=== PATIENT | female | born 2005 | race Caucasian/White ===

== ENCOUNTER → 2024-12-10 14:51 | Outpatient (CLI) | payer OTHER, SELFPAY ==
[2024-12-10 17:28] LABS: HCG Quantitative /Beta subunit 17055 mIU/mL
== END ==
PROVIDERS: Referring Provider Obstetrics & Gynecology; Visit Provider Obstetrics & Gynecology
DX: O20.9 Hemorrhage in early pregnancy, unspecified (principal)
CPT/HCPCS: 36415; 84702

== ENCOUNTER → 2024-12-12 11:32 | Outpatient (CLI) | payer OTHER, SELFPAY ==
[2024-12-12 13:30] LABS: HCG Quantitative /Beta subunit 21686 mIU/mL
== END ==
PROVIDERS: Referring Provider Obstetrics & Gynecology; Visit Provider Obstetrics & Gynecology
DX: O20.9 Hemorrhage in early pregnancy, unspecified (principal)
CPT/HCPCS: 36415; 84702

== ENCOUNTER → 2024-12-21 08:47 | Outpatient (CLI) | payer OTHER, SELFPAY ==
[2024-12-24 09:25] LABS: Urine N gonorrhoeae NOT DETECTED
[2024-12-24 09:26] LABS: Urine Chlamydia NOT DETECTED
== END ==
PROVIDERS: Visit Provider Obstetrics & Gynecology
DX: Z11.3 Encounter for screening for infections with a predominantly sexual mode of transmission (principal)
CPT/HCPCS: 87491; 87591

== ENCOUNTER 2025-01-09 18:27 | Emergency (ER) | payer OTHER, SELFPAY ==
[2025-01-09] VITALS (7 sets, daily range): BP systolic 107–124; BP diastolic 55–61; PULSE 66–84; RESP 16; TEMP 36.8; O2SAT 98–100; BMI 26.2
[2025-01-09 20:19] LABS: Add Manual Diff / Slide Review NO; Hematocrit 38.0 % (36-46); Hemoglobin 12.7 g/dL (12.0-16.0); Lymphocytes Absolute Auto 1300 /uL (1100-4500); Mean Corpuscular HGB Conc 33.5 % (30-36); Mean Corpuscular Hemoglobin 28.2 PG (26-34); Mean Corpuscular Volume 84.3 fL (80-100); Platelet Count 183 X10^3/uL (150-400)
[2025-01-09 20:31] LABS: Alanine Aminotransferase 24 IU/L (<35); Albumin 4.3 g/dL (3.5-5.0); Albumin Globulin Ratio 1.5 (1.0-2.8); Alkaline Phosphatase 51 U/L (38-126); Blood Urea Nitrogen 6 mg/dL (7-17); Calcium 9.2 mg/dL (8.4-10.2); Carbon Dioxide 21 mmol/L (22-32); Chloride 104 mmol/L (98-107); Estimated Glomerular Filt Rate > 60 mL/min (>60); Globulin 2.8 g/dL (1.7-4.1); Glucose 92 mg/dL (70-99); HEMOLYSIS < 15 (0-50); Lipase 37 U/L (23-300); Potassium 3.9 mmol/L (3.4-5.1); Sodium 135 mmol/L (137-145); Total Protein 7.1 g/dL (6.3-8.2)
--- NOTE | 2025-01-09 21:06 | ED_ITS ---
HPI - General Adult General Chief complaint: Urogenital-Female Stated complaint: lower back+abd pain 10 weeks Time Seen by Provider: 01/09/25 19:46 Source: patient Mode of arrival: Ambulatory History of Present Illness HPI narrative: 19-year-old female current about 10 weeks she believes, SAb1 obstetrical history, last menstrual period 10/30/2024, had early ultrasound confirming intrauterine , yet to have visit with provider here whose name she can not recall. Complains of left lower quadrant pain for the last 4 days. No vaginal bleeding or leaking of fluid. No painful or frequent urination. No injury trauma new activities. Denies chest pain shortness of breath. Related Data Home Medications ?Medication ?Instructions ?Recorded ?Confirmed vitamin-ferrous sulfate tab PO 12/05/2412/21 27 mg iron-folic acid 0.8 mg tablet Previous Rx's ?Medication ?Instructions ?Recorded cefdinir 300 mg capsule 300 mg PO BID 10 days #20 ca ps 01/10/25 Allergies Allergy/AdvReac Type Severity Reaction Status Date / Time No Known Drug Allergies Allergy Verified 01/09/25 18:30 Patient History Surgical History (Updated 12/05/24 @ 15:33 by Mimi Lewis RN) [place] teeth extracted Social History marital status: unmarried,living together number of children: 0 household members: significant other lives independently: Yes caregiver/support person: No housing: apartment pets and animals: No education level: high school occupational status: employed (active duty [employer]) current occupational exposures/hazards: No (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 needs: No travel history: recent ([place], [place]) seatbelt use: always water heater temp set < 120 deg: Yes working smoke detector in home: Yes fire extinguisher in home: Yes carbon monox detector in home: Yes firearms in home: No do you feel safe at home: Yes (answered w/ s/o present) Smoking Status: Never smoker second hand exposure: No alcohol intake: former (rarely when not ) substance use type: does not use during the past year weight has: remained stable well-balanced diet: about half the time daily servings fruits/ve-1 (1-2) caffeine: Yes (AM cup decaf coffee) Type(s) of exercise: walking Smoking Status: Never smoker Exam Narrative Exam Narrative: GENERAL: Well-developed patient, in mild distress. HEAD: Atraumatic. Normocephalic. EYES: Pupils equal round and reactive. Extraocular motions intact. No scleral icterus. No injection or drainage. ENT: Nose without bleeding, purulent drainage. Throat without erythema, tonsillar hypertrophy or exudate. Airway patent. NECK: Trachea midline. Non tender CARDIOVASCULAR: Regular rate and rhythm without murmurs, gallops, or rubs. RESPIRATORY: Clear to auscultation. Breath sounds equal bilaterally. No wheezes, rales, or rhonchi. GASTROINTESTINAL: Abdomen soft, non-tender, nondistended. EXTREMITIES: No edema or joint tenderness. BACK: Nontender without deformity or crepitance. No flank tenderness. NEURO: AOx3. Motor functions grossly nonfocal. SKIN: No rash or erythema of visible areas Initial Vital Signs Initial Vital Signs: Vital Signs Temperature 98.3 F 01/09/25 18:30 Pulse Rate 78 01/09/25 18:30 Respiratory Rate 16 01/09/25 18:30 Blood Pressure 111/58 L 01/09/25 18:30 Pulse Oximetry 100 01/09/25 18:30 Oxygen Delivery Method Room Air 01/09/25 18:30 Course Orders Ordered: ED Orders 01/09/25 20:10 Complete Blood Count AUTO DIFF Stat Comprehensive Metabolic Panel Stat Lipase Stat 01/09/25 20:17 Urine Microscopic Stat 01/09/25 21:34 US OB <= 14 weeks fetus Stat 01/09/25 23:51 Urine Culture Stat 01/10/25 00:09 Urinalysis and Microscopic Stat Discontinued Medications Acetaminophen (Acetaminophen 325 Mg Tablet) 650 mg PO NOW ONE Stop: 01/09/25 23:59 Last Admin: 01/10/25 01:04 Dose: 650 mg Documented By: DINORAH Cefdinir (Cefdinir 300 Mg Capsule) 300 mg PO NOW ONE Stop: 01/10/25 00:58 Last Admin: 01/10/25 01:04 Dose: 300 mg Documented By: DINORAH Morphine Sulfate (Morphine 4 Mg/Ml Inj) 4 mg IV NOW ONE Stop: 01/09/25 21:41 Last Admin: 01/09/25 21:50 Dose: 2 mg Documented By: NARENDRA Ondansetron HCl (Ondansetron 4 Mg/2 Ml Inj) 4 mg IV NOW ONE Stop: 01/09/25 21:41 Last Admin: 01/09/25 21:50 Dose: 4 mg Documented By: NARENDRA Ondansetron HCl (Ondansetron 4 Mg Odt Prepack) 1 bottle MISC DIRECTED ONE Stop: 01/10/25 01:15 Last Admin: 01/10/25 01:18 Dose: 1 bottle Documented By: DINORAH Vital Signs Vital signs: Vital Signs - 8 hr 01/09/25 21:43 01/09/25 22:00 01/09/25 22:00 Pulse Rate 78 71 Blood Pressure 124/61 Pulse Oximetry 100 100 Oxygen Delivery Method 01/09/25 22:27 01/09/25 22:27 01/09/25 22:30 Pulse Rate 68 Blood Pressure 118/61 111/56 L Pulse Oximetry 99 Oxygen Delivery Method 01/09/25 22:30 01/09/25 23:00 01/09/25 23:00 Pulse Rate 66 68 Blood Pressure 107/55 L Pulse Oximetry 98 98 Oxygen Delivery Method 01/09/25 23:30 01/09/25 23:30 01/10/25 00:00 Pulse Rate 84 63 Blood Pressure 109/55 L Pulse Oximetry 100 98 Oxygen Delivery Method Room Air 01/10/25 00:00 01/10/25 00:30 01/10/25 00:30 Pulse Rate 63 Blood Pressure 110/56 L 112/56 L Pulse Oximetry 98 Oxygen Delivery Method 01/10/25 01:00 01/10/25 01:00 01/10/25 01:02 Pulse Rate 66 Blood Pressure 88/53 L 95/51 L Pulse Oximetry 98 Oxygen Delivery Method 01/10/25 01:02 Pulse Rate 67 Blood Pressure Pulse Oximetry 99 Oxygen Delivery Method Medical Decision Making Lab Data Lab results reviewed: Yes I reviewed the patient's lab results. Lab results narrative: White blood cell count 50388, hemoglobin 12.7, platelets adequate. Glucose 92. BUN 6 with creatinine 0.52, serum CO2 21, electrolytes unremarkable. Liver functions normal. CCUA contaminated, requests repeat or cath UA. 01/09/25 20:10 01/09/25 20:10 Labs: Lab Results 01/09/25 01/09/25 01/09/25 Range/Units 20:10 20:17 23:51 WBC 11.2 H (4.5-11.0) X10^3/uL RBC 4.51 (4.0-5.2) X10^6/uL Hgb 12.7 (12.0-16.0) g/dL Hct 38.0 (36-46) % MCV 84.3 (80-100) fL MCH 28.2 (26-34) PG MCHC 33.5 (30-36) % RDW 14.0 (11.6-14.8) % Plt Count 183 (150-400) X10^3/uL Neut % (Auto) 83.9 H (50-75) % Lymph % (Auto) 11.9 L (25-40) % [place] % (Auto) 3.7 (3-14) % Eos % (Auto) 0.2 L (2-4) % Baso % (Auto) 0.3 (0-2) % Neut # (Auto) 9400 H (4899-5245) /uL Lymph # (Auto) 1300 (8531-5296) /uL [place] # (Auto) 400 (0-900) /uL Eos # (Auto) 0 (0-450) /uL Baso # (Auto) 0 (0-100) /uL Sodium 135 L (137-145) mmol/L Potassium 3.9 (3.4-5.1) mmol/L Chloride 104 (98-107) mmol/L Carbon Dioxide 21 L (22-32) mmol/L BUN 6 L (7-17) mg/dL Creatinine 0.52 (0.52-1.04) mg/dL Estimated GFR > 60 (>60) mL/min BUN/Creatinine Ratio 11.5 (6-22) Glucose 92 (70-99) mg/dL Calcium 9.2 (8.4-10.2) mg/dL Total Bilirubin 0.6 (0.2-1.3) mg/dL AST 26 (14-36) IU/L ALT 24 (<35) IU/L Alkaline Phosphatase 51 (38-126) U/L Total Protein 7.1 (6.3-8.2) g/dL Albumin 4.3 (3.5-5.0) g/dL Globulin 2.8 (1.7-4.1) g/dL Albumin/Globulin Ratio 1.5 (1.0-2.8) Lipase 37 (23-300) U/L Urine Color Yellow Urine Appearance Clear Urine pH 6.5 (4.5-8.0) Ur Specific [place] 1.015 (1.000-1.035) Urine Protein Negative (Negative) Urine Glucose (UA) Negative (Negative) g/dL Urine Ketones 1+ H (NEGATIVE) Urine Occult Blood Negative (Negative) Urine Nitrate Positive H (Negative) Urine Bilirubin Negative (NEGATIVE) Urine Urobilinogen 0.2 (0.2) E.U./dL Ur Leukocyte Esterase Negative (NEGATIVE) Urine RBC None seen None seen (0-5/HPF) Urine WBC 0-1/hpf None seen (0-5/HPF) Ur Squamous Epith Cells 10-30 /hpf H 5-10 /hpf H (0-5/HPF) Urine Bacteria Moderate (10-30) H Moderate (10-30) H (None) Urine Mucus 1+ H 2+ H (Negative) Ur Culture Indicated? Cult not indicated Specimen cultured Vol Urine Centrifuged 10ml (spun) 10ml (spun) Point of Care Testing Test Results Positive Urine Dip Bedside Urine Glucose Negative Bedside Urine Bilirubin - Negative Bedside Urine Ketone ++ 40 Urine Specific [place] 1.015 Bedside Urine Occult Blood - Negative Bedside Urine pH 6.0 Bedside Urine Protein - Negative Bedside Urine Urobilinogen - Negative Bedside Urine Nitrite - Negative Bedside Urine Leukocytes - Negative Esterase Point of care testing: Point of Care Testing Test Results Positive Urine Dip Bedside Urine Glucose Negative Bedside Urine Bilirubin - Negative Bedside Urine Ketone ++ 40 Urine Specific [place] 1.015 Bedside Urine Occult Blood - Negative Bedside Urine pH 6.0 Bedside Urine Protein - Negative Bedside Urine Urobilinogen - Negative Bedside Urine Nitrite - Negative Bedside Urine Leukocytes - Negative Esterase Imaging Data Ultrasound pelvis with limited left kidney: Radiologist's Impression: [address] [address] Ultrasound Report Signed Patient: Damon Valencia MR#: [id number] : 2005 Acct:[id number] Age/Sex: 19 / F Date of Service: 01/09/25 Loc: ED Accession Number: [id number] Procedure: US OB <= 14 weeks fetus Ordering Provider: Kristopher Peterson MD PROCEDURE: US OB <= 14 WEEKS FETUS INDICATIONS: 10 wks gest, LLQ abd pain, L flank pain OUTSIDE/PRIOR DATING DATA: Last menstrual period (LMP): 10/30/2024. LMP-based estimated date of delivery (KAMI): 08/06/2025. First dating scan (date and location): 01/09/2025. Estimated date of delivery (KAMI) from first dating scan: 08/04/2025. TECHNIQUE: Real-time scanning was performed of the fetus and maternal pelvic organs, with image documentation. Endovaginal scanning was also performed to better visualize the fetus and maternal ovaries. COMPARISON: None. FINDINGS: Embryo: pole with crown-rump length measuring 3.5 cm consistent with 10 weeks and 3 days. Heart rate: 168 Maternal organs: Ovaries are within normal limits. Limited views of the left kidney appear within normal limits. IMPRESSION: 1. Single live intrauterine consistent with 10 weeks and 3 days. 2. Bilateral ovaries and limited views of the left kidney appear normal. We strive to produce accurate, complete, and clear reports of imaging services. To assist us in improving patient care, this report was composed using standard report templates and voice recognition software. Therefore, it may contain abnormal punctuation, insertions and/or omissions. Occasional wrong-word or sound-alike substitutions may occur. Though we review the report and make efforts to correct it, we do recommend that the report be read carefully in proper context to recognize any text inaccuracies. Dictated by: Maycol Lopes M.D. on 01/09/2025 at 22:37 Approved by: Maycol Lopes M.D. on 01/09/2025 at 22:39 MDM Narrative Medical decision making narrative: 19-year-old female current SAB 1, 10 week gestation, with left flank and left lower quadrant discomfort, no vaginal bleeding, no leaking of fluid. No painful urination, afebrile, sirs screen negative. No tenderness on examination. Labs and urinalysis pending. Ultrasound with left flank/kidney ordered. We would like something for pain control, IV morphine for pain. Lab data: White blood cell count 22855, hemoglobin 12.7, platelets adequate. Glucose 92. BUN 6 with creatinine 0.52, serum CO2 21, electrolytes unremarkable. Liver functions normal. CCUA contaminated, requests repeat or cath UA. 2030, Ultrasound pelvis shows IUP, no acute changes, additional visualization left kidney area, no hydronephrosis or renal lesions. Sono tech report. Await Radiology report. Ultrasound with pelvis, limited left kidney visualization as well. Single live intrauterine consistent with 10 weeks and 3 days. Bilateral ovaries and limited views of the left kidney appeared normal. See radiology report. CCUA contaminated, refused catheterization, repeat CCUA pending. Patient feels a little better with morphine, does not want any further morphine, we will take Tylenol. Oral Tylenol ordered. Repeat CC UA not contaminated appearing, with positive nitrite and bacteriuria, urine culture triggered by protocol. Possible UTI, possible left pyelonephritis, hemodynamically stable, 1st trimester , no nausea or vomiting. Trial of outpatient therapy. Oral cefdinir antibiotic given in the emergency department, prescription for further antibiotic on discharge. Encouraged to recheck with her weblogic administrator on Tuesday, drink plenty of fluids, return precautions discussed. Discharged home with family. On discharge also given contact information for weblogic administrator on-call Dr. Jimenez, if she has difficulty contacting her own weblogic administrator in being seen in close follow up on Tuesday. Discharge Plan Departure Patient Disposition: Home Clinical Impression: Urinary tract infection, Instructions: DI for Urinary Tract Infection (UTI) Activity Restrictions/Additional Instructions: Early at about 10 weeks gestation at this time, with left sided nontraumatic pain to the abdomen and flank area. Initial urinalysis was not convincing for infection. Ultrasound of the pelvis showed no acute findings, 10 week size live single intrauterine noted, no problems with either ovary seemed to be identified, limited view of left kidney but without obvious problems per Radiology report. Eventually a repeat non contaminated urinalysis was obtained, which was suspicious for infection by chemical markers and presence of bacteria, urine culture was triggered by protocol. Oral antibiotic cefdinir given, further antibiotics prescription sent to your pharmacy. Take oral antibiotics as directed. Follow up with your regular doctor on Tuesday. Follow up with your weblogic administrator early this next week. Recheck earlier if any change worsening symptoms or any concerns prior. You could not remember the name of your weblogic administrator, contact information provided for Dr. Jimenez who was on-call here today, if you need to make close follow up arrangements early next week with Dr. Jimenez, if you can not make appointment with your regular weblogic administrator that soon. Prescriptions: New cefdinir 300 mg capsule 300 mg PO BID 10 Days Qty: 20 0RF No Action vit-ferrous sulfat-FA 27 mg iron- 0.8 mg tablet PO Referrals: Miscellaneous,Doctor, MD [Primary Care Provider, Medical] Tiffanie Jimenez DO [Physician, RADIOLOGIC ELECTRONIC SPECIALIST] Stand Alone Forms: Patient Portal/API
--- NOTE | 2025-01-09 21:34 | DI.US.S_ITS ---
PROCEDURE: US OB <= 14 WEEKS FETUS INDICATIONS: 10 wks gest, LLQ abd pain, L flank pain OUTSIDE/PRIOR DATING DATA: Last menstrual period (LMP): 10/30/2024. LMP-based estimated date of delivery (KAMI): 08/06/2025. First dating scan (date and location): 01/09/2025. Estimated date of delivery (KAMI) from first dating scan: 08/04/2025. TECHNIQUE: Real-time scanning was performed of the fetus and maternal pelvic organs, with image documentation. Endovaginal scanning was also performed to better visualize the fetus and maternal ovaries. COMPARISON: None. FINDINGS: Embryo: pole with crown-rump length measuring 3.5 cm consistent with 10 weeks and 3 days. Heart rate: 168 Maternal organs: Ovaries are within normal limits. Limited views of the left kidney appear within normal limits. IMPRESSION: 1. Single live intrauterine consistent with 10 weeks and 3 days. 2. Bilateral ovaries and limited views of the left kidney appear normal. We strive to produce accurate, complete, and clear reports of imaging services. To assist us in improving patient care, this report was composed using standard report templates and voice recognition software. Therefore, it may contain abnormal punctuation, insertions and/or omissions. Occasional wrong-word or sound-alike substitutions may occur. Though we review the report and make efforts to correct it, we do recommend that the report be read carefully in proper context to recognize any text inaccuracies. Dictated by: Maycol Lopes M.D. on 01/09/2025 at 22:37 Approved by: Maycol Lopes M.D. on 01/09/2025 at 22:39
[2025-01-09] MEDS: ONDANSETRON 4 MG/2 ML INJ IV (21:50)
[2025-01-09] MEDS: MORPHINE 4 MG/ML INJ IV (21:50)
[2025-01-09 21:55] LABS: Culture Indicated Urine Cult Not Indicated
[2025-01-10] VITALS: BP 110/56; PULSE 63; O2SAT 98
[2025-01-10 00:30] VITALS: BP 112/56; PULSE 63; O2SAT 98
[2025-01-10 00:36] LABS: Appearance Urine UA CLEAR; Bilirubin Urine UA NEGATIVE (NEGATIVE); Color Urine UA YELLOW; Glucose Urine UA NEGATIVE (Negative); Ketones Urine UA 1+ (NEGATIVE); Leukocyte Esterase Urine UA NEGATIVE (NEGATIVE); Nitrite Urine UA POSITIVE (Negative); Occult Blood Urine UA NEGATIVE (Negative); Protein Urine UA NEGATIVE (Negative); Specific Gravity Urine UA 1.015 (1.000-1.035); Urobilinogen Urine UA 0.2 E.U./dL (0.2)
[2025-01-10 00:40] LABS: pH Urine UA 6.5 (4.5-8.0)
[2025-01-10 00:44] LABS: Culture Indicated Urine Specimen Cultured
[2025-01-10 01:00] VITALS: BP 88/53; PULSE 66; O2SAT 98
[2025-01-10 01:02] VITALS: BP 95/51; PULSE 67; O2SAT 99
[2025-01-10] MEDS: CEFDINIR 300 MG CAPSULE PO (01:04)
[2025-01-10] MEDS: ACETAMINOPHEN 325 MG TABLET 650 MG PO (01:04)
[2025-01-10] MEDS: ONDANSETRON 4 MG ODT PREPACK 1 BOTTLE MISC (01:18)
== END 2025-01-10 01:19 | disposition home or self-care (01) ==
PROVIDERS: Emergency Provider Emergency Medicine
DX: O23.41 Unspecified infection of urinary tract in pregnancy, first trimester (principal); N39.0 Urinary tract infection, site not specified; Z3A.10 10 weeks gestation of pregnancy
CPT/HCPCS: 36415; 76801; 80053; 81001; 81003; 81015; 81025; 83690; 85025; 87086; 93976; 96374; 96375; 99284; J2270; J2405

== ENCOUNTER 2025-01-14 14:42 | Emergency (ER) | payer OTHER, SELFPAY ==
[2025-01-14] VITALS (7 sets, daily range): BP systolic 116–128; BP diastolic 57–75; PULSE 76–84; RESP 15–20; TEMP 37; O2SAT 99–100; BMI 26.2
--- NOTE | 2025-01-14 14:56 | DI.US.S_ITS ---
PROCEDURE: US OB <= 14 WEEKS FETUS INDICATIONS: abd pain OUTSIDE/PRIOR DATING DATA: Last menstrual period (LMP): 10/30/2024 LMP-based estimated date of delivery (KAMI): 08/06/2025 First dating scan (date and location): 01/09/2025 Estimated date of delivery (KAMI) from first dating scan: 08/04/2025 TECHNIQUE: Real-time scanning was performed of the fetus and maternal pelvic organs, with image documentation. COMPARISON: [facility], OB <= 14 WEEKS FETUS, 01/09/2025, 22:02. FINDINGS: Embryo: Single live intrauterine gestational sac is seen with fetus noted. Estimated gestational age based on previous study is 10 weeks, 6 days. Heart rate: 165 beats per minute. Maternal organs: Ovaries are within normal limits. IMPRESSION: Single live intrauterine gestation with fetus seen. heart rate is 165 beats per minute. Normal appearing bilateral ovaries. We strive to produce accurate, complete, and clear reports of imaging services. To assist us in improving patient care, this report was composed using standard report templates and voice recognition software. Therefore, it may contain abnormal punctuation, insertions and/or omissions. Occasional wrong-word or sound-alike substitutions may occur. Though we review the report and make efforts to correct it, we do recommend that the report be read carefully in proper context to recognize any text inaccuracies. Dictated by: Brandon Smith M.D. on 01/14/2025 at 15:50 Approved by: Brandon Smith M.D. on 01/14/2025 at 15:52
--- NOTE | 2025-01-14 15:04 | ED_ITS ---
HPI - Nausea/Vomiting/Diarrhea General Chief complaint: Nausea/Vomiting/Diarrhea Stated complaint: cant eat, head ache Time Seen by Provider: 01/14/25 14:54 Source: patient Mode of arrival: Ambulatory History of Present Illness HPI Narrative: 19y female 11wks with KAMI 08/13/25 currently being treated for kidney infection seen at to ERs recently most recently at another ER given IM antibiotics presents with nonbilious nausea decreased appetite feeling weak and dehydrated. Patient was recently in [facility] for 2 days but did have appropriate p.o. intake. Other than what is stated 14 point review of systems negative. Related Data Home Medications ?Medication ?Instructions ?Recorded ?Confirmed vitamin-ferrous sulfate tab PO 12/05/2412/21 27 mg iron-folic acid 0.8 mg tablet Previous Rx's ?Medication ?Instructions ?Recorded cefdinir 300 mg capsule 300 mg PO BID 10 days #20 ca ps 01/10/25 ondansetron HCl 4 mg tablet 4 mg PO Q8H PRN nausea and 01/14/25 vomiting #30 tabs Allergies Allergy/AdvReac Type Severity Reaction Status Date / Time No Known Drug Allergies Allergy Verified 01/14/25 14:45 Review of Systems Review of Systems ROS Unobtainable: All systems reviewed & are unremarkable except as noted in HPI and below Patient History Surgical History (Updated 12/05/24 @ 15:33 by Mimi Lewis RN) [place] teeth extracted Social History marital status: unmarried,living together number of children: 0 household members: significant other lives independently: Yes caregiver/support person: No housing: apartment pets and animals: No education level: high school occupational status: employed (active duty [employer] current occupational exposures/hazards: No (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 needs: No travel history: recent ([place], [place]) seatbelt use: always water heater temp set < 120 deg: Yes working smoke detector in home: Yes fire extinguisher in home: Yes carbon monox detector in home: Yes firearms in home: No do you feel safe at home: Yes (answered w/ s/o present) Smoking Status: Never smoker second hand exposure: No alcohol intake: former (rarely when not ) substance use type: does not use during the past year weight has: remained stable well-balanced diet: about half the time daily servings fruits/ve-1 (1-2) caffeine: Yes (AM cup decaf coffee) Type(s) of exercise: walking Smoking Status: Never smoker Exam Narrative Exam Narrative: GENERAL: [19] year old patient appears stated age. Well-developed patient, in mild distress. HEAD: Atraumatic. Normocephalic. EYES: Pupils equal round and reactive. Extraocular motions intact. No scleral icterus. No injection or drainage. ENT: Nose without bleeding, purulent drainage. Throat without erythema, tonsillar hypertrophy or exudate. Airway patent. NECK: Trachea midline. Non tender CARDIOVASCULAR: Regular rate and rhythm without murmurs, gallops, or rubs. RESPIRATORY: Clear to auscultation. Breath sounds equal bilaterally. No wheezes, rales, or rhonchi. GASTROINTESTINAL: Abdomen soft, non-tender, nondistended. EXTREMITIES: No edema or joint tenderness. BACK: Nontender without deformity or crepitance. No flank tenderness. NEURO: AOx3. SKIN: No rash or erythema of visible areas Initial Vital Signs Initial Vital Signs: Vital Signs Temperature 98.6 F 01/14/25 14:45 Pulse Rate 84 01/14/25 14:45 Respiratory Rate 20 01/14/25 14:45 Blood Pressure 117/64 01/14/25 14:45 Pulse Oximetry 100 01/14/25 14:45 Oxygen Delivery Method Room Air 01/14/25 14:45 Course Orders Ordered: ED Orders 01/14/25 14:56 US OB <= 14 weeks fetus Stat 01/14/25 15:22 Complete Blood Count AUTO DIFF Stat Comprehensive Metabolic Panel Stat HCG Quantitative /Beta subunit Stat Sodium Chloride (Normal Saline 0.9%) 1,000 mls @ 1,000 mls/hr IV BOLUS ONE Stop: 01/14/25 16:07 Last Admin: 01/14/25 15:36 Dose: 1,000 mls/hr Documented By: SB Vital Signs Vital signs: Vital Signs - 8 hr 01/14/25 14:45 Temperature 98.6 F Pulse Rate 84 Respiratory Rate 20 Blood Pressure 117/64 Pulse Oximetry 100 Oxygen Delivery Method Room Air MDM - Nausea/Vomiting/Diarrhea Lab Data 01/14/25 15:22 01/14/25 15:22 Labs: Lab Results 01/14/25 Range/Units 15:22 WBC 8.7 (4.5-11.0) X10^3/uL RBC 4.61 (4.0-5.2) X10^6/uL Hgb 13.1 (12.0-16.0) g/dL Hct 38.7 (36-46) % MCV 84.1 (80-100) fL MCH 28.4 (26-34) PG MCHC 33.8 (30-36) % RDW 13.6 (11.6-14.8) % Plt Count 202 (150-400) X10^3/uL Neut % (Auto) 79.4 H (50-75) % Lymph % (Auto) 14.5 L (25-40) % [place] % (Auto) 5.3 (3-14) % Eos % (Auto) 0.3 L (2-4) % Baso % (Auto) 0.5 (0-2) % Neut # (Auto) 6900 (4520-7971) /uL Lymph # (Auto) 1300 (4420-9186) /uL [place] # (Auto) 500 (0-900) /uL Eos # (Auto) 0 (0-450) /uL Baso # (Auto) 0 (0-100) /uL Sodium 133 L (137-145) mmol/L Potassium 3.7 (3.4-5.1) mmol/L Chloride 101 (98-107) mmol/L Carbon Dioxide 22 (22-32) mmol/L BUN 8 (7-17) mg/dL Creatinine 0.58 (0.52-1.04) mg/dL Estimated GFR > 60 (>60) mL/min BUN/Creatinine Ratio 13.8 (6-22) Glucose 87 (70-99) mg/dL Calcium 9.3 (8.4-10.2) mg/dL Total Bilirubin 0.8 (0.2-1.3) mg/dL AST 35 (14-36) IU/L ALT 33 (<35) IU/L Alkaline Phosphatase 53 (38-126) U/L Total Protein 7.2 (6.3-8.2) g/dL Albumin 4.5 (3.5-5.0) g/dL Globulin 2.7 (1.7-4.1) g/dL Albumin/Globulin Ratio 1.7 (1.0-2.8) Urine Dip Bedside Urine Glucose Negative Bedside Urine Bilirubin - Negative Bedside Urine Ketone +/- 5 Urine Specific [place] 1.005 Bedside Urine Occult Blood - Negative Bedside Urine pH 6.0 Bedside Urine Protein - Negative Bedside Urine Urobilinogen - Negative Bedside Urine Nitrite - Negative Bedside Urine Leukocytes - Negative Esterase Imaging Data US - OB: Radiologist's Impression: [address] [address] [address] Scan Report Signed Patient: Gopal Vera MR#: [id number] : 03/04/1941 Acct:[id number] Age/Sex: 83 / M Date of Service: 01/14/25 Loc: ED Accession Number: [id number] Procedure: CT angio head and neck Ordering Provider: Viet Garcia D.O. PROCEDURE: CT ANGIO HEAD AND NECK INDICATIONS: neuro def/left arm TECHNIQUE: After the administration of intravenous contrast, 1 mm thick sections acquired from the aortic arch through the [place] of [place]. 3-dimensional qfbwnco-iuhhavzlz-ypcanhiwep (MIP) and/or volume rendering reformats were acquired of the central intracranial vasculature and neck separately. For radiation dose reduction, the following was used: automated exposure control, adjustment of mA and/or kV according to patient size. COMPARISON: [facility], CT, CT ANGIO HEAD AND NECK, 07/17/2021, 11:46. FINDINGS: Image quality: Diagnostic. Cerebral CT Angiogram: Internal carotid arteries: No acute findings. Intracranial ICA are patent with no significant stenosis. No occlusion. No aneurysm. Anterior cerebral arteries: Unremarkable. No significant stenosis. No occlusion. No aneurysm. Middle cerebral arteries: Unremarkable. No significant stenosis. No occlusion. No aneurysm. Posterior cerebral arteries: Unremarkable. No significant stenosis. No occlusion. No aneurysm. Basilar artery: Unremarkable. No significant stenosis. No occlusion. No aneurysm. Vertebral arteries: Occlusion involving V3 and V4 segment of right vertebral artery unchanged from prior study. Dural venous sinuses: Unremarkable given phase of enhancement. Other: Arterial phase appearance of the brain parenchyma is unremarkable. Neck CT Angiogram: Internal carotid arteries: Patient is status post interval right proximal internal carotid artery endarterectomy with postsurgical changes and vascular stent in place. Normal contrast opacification of right internal carotid artery is seen. Less than 50% stenosis involving proximal left internal carotid artery is again seen and unchanged. No significant stenosis. No dissection or occlusion. Common carotid arteries: Unremarkable. No significant stenosis. No dissection or occlusion. External carotid arteries: Unremarkable. No occlusion. Vertebral arteries: High-grade stenosis involving origin of right vertebral artery is again seen and unchanged. Less than 50% stenosis involving origin of left vertebral artery. No significant stenosis. No dissection or occlusion. Aortic Arch and Mediastinum: Partially visualized aortic arch unremarkable without evidence of aneurysm. Origins of the great vessels unremarkable. Other: Arterial phase soft tissues of the neck and chest are unremarkable. IMPRESSION: 1. 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 2. Interval right internal carotid artery surgery with vascular stent in place. No hemodynamically significant stenosis is seen in right internal carotid artery on the current study. Less than 50% stenosis again noted involving origin of left internal carotid artery. 3. High-grade stenosis again seen involving origin of right vertebral artery unchanged from prior study. Less than 50% stenosis again seen involving origin of left vertebral artery. 4. No other hemodynamically significant stenosis or aneurysm is seen in head and neck arteries. ECG Data Interpretation: Sinus [place] HR 49 ND 142 QRS [address]-t wave change No previous ekg to compare MDM Narrative Medical decision making narrative: All lab work, vital signs, nurse triage note, medication list, previous ER visits, and all imaging studies reviewed. Patient given fluid, Rocephin. Ultrasound shows single live intrauterine gestation with fetus seen heart rate is 165 beats per minute. Normal-appearing bilateral ovaries. Differential diagnosis hyperemesis gravidarum, dehydration, electrolyte derangement, UTI, kidney infection. Patient has upcoming appoint with OBGYN this Tuesday. Discharge Plan Departure Patient Disposition: Home Clinical Impression: Infection of kidney, Hyperemesis gravidarum before end of 22 week gestation with dehydration Instructions: DI for Hyperemesis Gravidarum Activity Restrictions/Additional Instructions: Return with new or worsening symptoms. Take your medicines as directed. Keep hydrated. Follow up with OBGYN appointment. Prescriptions: New ondansetron HCl 4 mg tablet 4 mg PO Q8H PRN (Reason: nausea and vomiting) Qty: 30 0RF No Action vit-ferrous sulfat-FA 27 mg iron- 0.8 mg tablet PO cefdinir 300 mg capsule 300 mg PO BID 10 Days Qty: 20 0RF Referrals: Miscellaneous,Doctor, MD [Primary Care Provider, Medical] Stand Alone Forms: Patient Portal/API
[2025-01-14 15:36] LABS: Add Manual Diff / Slide Review NO; Hematocrit 38.7 % (36-46); Hemoglobin 13.1 g/dL (12.0-16.0); Lymphocytes Absolute Auto 1300 /uL (1100-4500); Mean Corpuscular HGB Conc 33.8 % (30-36); Mean Corpuscular Hemoglobin 28.4 PG (26-34); Mean Corpuscular Volume 84.1 fL (80-100); Platelet Count 202 X10^3/uL (150-400)
[2025-01-14] MEDS: SODIUM CHLORIDE 0.9% 1,000 ML 1000 ML IV (15:36)
[2025-01-14 15:54] LABS: Alanine Aminotransferase 33 IU/L (<35); Albumin 4.5 g/dL (3.5-5.0); Albumin Globulin Ratio 1.7 (1.0-2.8); Alkaline Phosphatase 53 U/L (38-126); Blood Urea Nitrogen 8 mg/dL (7-17); Calcium 9.3 mg/dL (8.4-10.2); Carbon Dioxide 22 mmol/L (22-32); Chloride 101 mmol/L (98-107); Estimated Glomerular Filt Rate > 60 mL/min (>60); Globulin 2.7 g/dL (1.7-4.1); Glucose 87 mg/dL (70-99); HEMOLYSIS < 15 (0-50); Potassium 3.7 mmol/L (3.4-5.1); Sodium 133 mmol/L (137-145); Total Protein 7.2 g/dL (6.3-8.2)
[2025-01-14 16:36] LABS: HCG Quantitative /Beta subunit 86837 mIU/mL
== END 2025-01-14 17:55 | disposition home or self-care (01) ==
PROVIDERS: Emergency Provider Family Medicine
DX: O21.1 Hyperemesis gravidarum with metabolic disturbance (principal); N15.9 Renal tubulo-interstitial disease, unspecified; Z3A.11 11 weeks gestation of pregnancy
CPT/HCPCS: 36415; 76801; 80053; 81003; 84702; 85025; 96360; 99284; J0696

== ENCOUNTER → 2025-02-15 10:12 | Outpatient (CLI) | payer OTHER, SELFPAY ==
[2025-02-18 13:40] LABS: Gest Age on Col Date 15.4 weeks (.); OSBR Risk 1IN 10000 (.)
== END ==
PROVIDERS: Referring Provider Obstetrics & Gynecology; Visit Provider Obstetrics & Gynecology
DX: Z34.02 Encounter for supervision of normal first pregnancy, second trimester (principal)
CPT/HCPCS: 36415; 82105

== ENCOUNTER → 2025-03-05 10:37 | Outpatient (CLI) | payer OTHER, SELFPAY ==
--- NOTE | 2025-03-05 10:38 | DI.MRI.S_ITS ---
PROCEDURE: MR LUMBAR SPINE WO CON INDICATIONS: LOW BACK PAIN TECHNIQUE: Noncontrast sagittal T1 spin echo and T2 fast echo, sagittal STIR, and T2 fast spin echo through the lumbar spine. In cases with scoliosis, additional coronal T2 fast spin echo may be performed. COMPARISON: [facility], , PELVIC COMPLETE, 01/21/2025, 18:15. FINDINGS: Image quality: Excellent. Alignment and Curvature: No plain films are available for comparison, for numbering purposes. Thus, for the purposes of this examination, 5 lumbar type vertebral bodies will be presumed, as denoted on the montage panel. This should be confirmed and correlated with plain films, prior to any lumbar spinal intervention. Loss of normal lumbar lordosis. Bone Marrow: Marrow is of normal overall signal. No acute vertebral body compression fractures. Spinal Cord: Conus medullaris terminates at the L1-L2 disc space level. Visualized cord demonstrates normal signal and size. Paraspinous Soft Tissues: No paravertebral masses. Incompletely visualized gravid uterus is present. T12-L1: Normal appearance. L1-L2: Normal appearance. L2-L3: Normal appearance. L3-L4: Normal appearance. L4-L5: Normal appearance. L5-S1: Normal appearance. IMPRESSION: 1. Loss of normal lumbar lordosis, suggestive of muscle spasm. 2. No significant canal nor foraminal stenosis. No neural impingement. 3. Incompletely visualized gravid uterus. Dictated by: Arturo Roche M.D. on 03/05/2025 at 11:40 Approved by: Arturo Roche M.D. on 03/05/2025 at 11:43
== END ==
LOC: MRI 10:38
PROVIDERS: Referring Provider Preventive Medicine Aerospace Medicine; Visit Provider Preventive Medicine Aerospace Medicine
DX: M54.50 Low back pain, unspecified (principal)
CPT/HCPCS: 72148

== ENCOUNTER → 2025-03-18 11:02 | Outpatient (CLI) | payer OTHER, SELFPAY ==
--- NOTE | 2025-03-18 11:03 | DI.US.S_ITS ---
PROCEDURE: US OB >= 14 WEEKS FETUS INDICATIONS: anatomy scan OUTSIDE/PRIOR DATING DATA: Last menstrual period (LMP): 10/30/2024. LMP-based estimated date of delivery (KAMI): 08/06/2025. First dating scan (date and location): 01/09/2025. Estimated date of delivery (KAMI) from first dating scan: 08/04/2025. TECHNIQUE: Real-time scanning was performed of the fetus, with image documentation and biometric measurements. Endovaginal scanning: Not obtained COMPARISON: None. FINDINGS: General: A single living intrauterine gestation is present. Presentation: Vertex. Placenta: Placental position is anterior , without previa. Amniotic fluid index: 17.4 cm, normal range is 5-24 cm. Single deepest vertical pocket is 5.7 cm. heart rate: 141 beats per minute. Maternal cervical canal: 3.0 cm long. Normal lower limit is 2.5 cm. biometrics: Biparietal diameter: 4.9 cm 20 weeks 6 days Head circumference: 17.4 cm 20 weeks 0 days Abdominal circumference: 14.7 cm 20 weeks 0 days Femur length: 3.2 cm 19 weeks 6 days Clinically estimated gestational age: 19 weeks 6 days Composite gestational age from present scan: 20 weeks 1 day Estimated weight and percentile: 321 g 49th percentile Anatomic survey: Neuro: Ventricles are non-dilated at less than 10 mm. Cisterna magna is normal at 3-11 mm. Cerebellum is normal in size and morphology. Nuchal skin fold: Normal at less than 6 mm between 14-21 weeks gestational age. Face: Nose and lips, facial profile are normal. Spine: No evidence for spina bifida. Heart: 4-chambered heart is present, with normal ventricular outflow tracts. Diaphragm: Diaphragm is intact. Stomach: Left-sided stomach is present. Kidneys: No hydronephrosis. Normal is less than 5 mm in 2nd trimester, less than 7 mm in 3rd trimester. Cord: 3-vessel cord has orthotopic insertion. Bladder: Normal in size. Extremities: All 4 extremities identified. IMPRESSION: Single live intrauterine with gestational age today of 20 weeks 1 day. Anatomy is within normal limits. We strive to produce accurate, complete, and clear reports of imaging services. To assist us in improving patient care, this report was composed using standard report templates and voice recognition software. Therefore, it may contain abnormal punctuation, insertions and/or omissions. Occasional wrong-word or sound-alike substitutions may occur. Though we review the report and make efforts to correct it, we do recommend that the report be read carefully in proper context to recognize any text inaccuracies. Dictated by: Adela Ortega M.D. on 03/18/2025 at 16:26 Approved by: Adela Ortega M.D. on 03/18/2025 at 16:27
== END ==
LOC: US 11:02
PROVIDERS: Referring Provider Obstetrics & Gynecology; Visit Provider Obstetrics & Gynecology
DX: Z34.02 Encounter for supervision of normal first pregnancy, second trimester (principal); Z3A.19 19 weeks gestation of pregnancy
CPT/HCPCS: 76811

== ENCOUNTER 2025-03-27 12:39 | Emergency (ER) | payer OTHER, SELFPAY ==
[2025-03-27 12:58] VITALS: BP 118/66; PULSE 82; RESP 20; TEMP 36.8; O2SAT 100; BMI 29.2
--- NOTE | 2025-03-27 13:05 | ED.URI ---
HPI - URI/Sore Throat <Alexandria Moore PA-C - Last Filed: 03/27/25 14:57> General Chief Complaint: Shortness of Breath/Dyspnea Stated Complaint: SOB, cough w/pn, MCGINNIS , sore throat since yesterday Time Seen by Provider: 03/27/25 12:43 History of Present Illness HPI Narrative: Ms. Valencia is a very pleasant 19-year-old female with a past medical history of possible asthma, currently 21 weeks, who follows with Dr. Myers/zEequiel/Mane who presents to the emergency department for cough, shortness of breath, headache, sore throat, sinus congestion since yesterday. Patient denies any known sick contact, states that 1 of her coworkers was sick however. States that yesterday she developed her symptoms, this morning she went to physical therapy for low back pain but was sent away due to being sick. She went to her OBGYN office, had vital signs checked which were normal, but they can not get her in for an appointment today. States that she started to feel worked up and felt more short of breath so she called her OBGYN who advised she come to the ER to be checked out. Patient states that she does occasionally use an inhaler for shortness of breath, she has not use this, she did have it refilled today. Patient describes sensation of dry cough that causes chest tightness, nausea with no vomiting, headache, sore throat, left-sided facial congestion. Reports that last night she had some mild left-sided pelvic twinges that have resolved. She is feeling normal movements today. Denies diarrhea, constipation, dysuria, fevers, chills, vomiting. She has not taken any medications prior to arrival. Related Data Home Medications ?Medication ?Instructions ?Recorded ?Confirmed vitamin-ferrous sulfate tab PO 12/05/24 03/15/25 27 mg iron-folic acid 0.8 mg tablet Previous Rx's ?Medication ?Instructions ?Recorded ondansetron HCl 4 mg tablet 4 mg PO Q8H PRN nausea and 01/14/25 vomiting #30 tabs Allergies Allergy/AdvReac Type Severity Reaction Status Date / Time No Known Drug Allergies Allergy Verified 03/15/25 08:45 Review of Systems <Alexandria Moore PA-C - Last Filed: 03/27/25 14:57> Review of Systems ROS Unobtainable: All systems reviewed & are unremarkable except as noted in HPI and below Patient History <Alexandria Moore PA-C - Last Filed: 03/27/25 14:57> Surgical History [place] teeth extracted Social History marital status: unmarried,living together number of children: 0 household members: significant other lives independently: Yes caregiver/support person: No housing: apartment pets and animals: No education level: high school occupational status: employed (active duty [employer] current occupational exposures/hazards: No (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 needs: No travel history: recent ([place], [place]) seatbelt use: always water heater temp set < 120 deg: Yes working smoke detector in home: Yes fire extinguisher in home: Yes carbon monox detector in home: Yes firearms in home: No do you feel safe at home: Yes (answered w/ s/o present) second hand exposure: No alcohol intake: former (rarely when not ) substance use type: does not use during the past year weight has: remained stable well-balanced diet: about half the time daily servings fruits/ve-1 (1-2) caffeine: Yes (AM cup decaf coffee) Type(s) of exercise: walking Exam <Alexandria Moore PA-C - Last Filed: 03/27/25 14:57> Narrative Exam Narrative: GENERAL: 19 year old patient appears stated age. Well-developed patient, in no acute distress. HEAD: Atraumatic. Normocephalic. EYES: PERRL. Extraocular motions intact. No scleral icterus. No injection or drainage. ENT: Right ear canal clear, pearly villarreal TM. Left ear canal clear, pearly villarreal TM with slight clear fluid. Nose without bleeding, purulent drainage. Throat with very minimal posterior oropharyngeal erythema, no tonsillar hypertrophy or exudates. Uvula is midline. Airway patent. NECK: Trachea midline. Cervical ROM intact. CARDIOVASCULAR: Regular rate and rhythm. RESPIRATORY: ?Nonlabored respirations. ?Speaking in clear, full sentences. ?Clear to auscultation. Breath sounds equal bilaterally. No wheezes, rales, or rhonchi. ? GASTROINTESTINAL: Gravid uterus. Soft, nontender. EXTREMITIES: No LE edema. NEURO: AOx3. ?Clear speech. ?Moves all 4 extremities appropriately. SKIN: No rash or erythema of visible areas Initial Vital Signs Initial Vital Signs: Vital Signs Temperature 98.3 F 03/27/25 12:58 Pulse Rate 82 03/27/25 12:58 Respiratory Rate 20 03/27/25 12:58 Blood Pressure 118/66 03/27/25 12:58 Pulse Oximetry 100 03/27/25 12:58 Oxygen Delivery Method Room Air 03/27/25 12:58 <Shawn Peck MD - Last Filed: 03/27/25 18:57> Initial Vital Signs Initial Vital Signs: Vital Signs Temperature 98.3 F 03/27/25 12:58 Pulse Rate 82 03/27/25 12:58 Respiratory Rate 20 03/27/25 12:58 Blood Pressure 118/66 03/27/25 12:58 Pulse Oximetry 100 03/27/25 12:58 Oxygen Delivery Method Room Air 03/27/25 12:58 Course <Alexandria Moore PA-C - Last Filed: 03/27/25 14:57> Orders Ordered: ED Orders 03/27/25 12:50 Covid-19 + FLU A/B + RSV - PCR Stat Discontinued Medications Acetaminophen (Acetaminophen 325 Mg Tablet) 975 mg PO NOW ONE Stop: 03/27/25 13:20 Last Admin: 03/27/25 13:44 Dose: 975 mg Documented By: LIZA Albuterol (Albuterol 1.25 Mg/3 Ml Neb (Pediatric)) 1.25 mg INH NOW ONE Stop: 03/27/25 13:20 Albuterol (Albuterol 2.5 Mg/3 Ml Neb (Adult)) 2.5 mg INH NOW ONE Stop: 03/27/25 13:51 Last Admin: 03/27/25 13:51 Dose: 2.5 mg Documented By: GRICELDA Ondansetron HCl (Ondansetron 4 Mg Odt) 4 mg SL NOW ONE Stop: 03/27/25 13:20 Last Admin: 03/27/25 13:45 Dose: 4 mg Documented By: LIZA Vital Signs Vital signs: Vital Signs - 8 hr 03/27/25 12:58 03/27/25 13:47 03/27/25 13:52 Temperature 98.3 F Pulse Rate 82 98 H 89 Respiratory Rate 20 18 18 Blood Pressure 118/66 Pulse Oximetry 100 98 99 Oxygen Delivery Method Room Air Room Air Room Air 03/27/25 14:00 03/27/25 14:00 Temperature Pulse Rate 91 H Respiratory Rate Blood Pressure 112/62 Pulse Oximetry 98 Oxygen Delivery Method <Shawn Peck MD - Last Filed: 03/27/25 18:57> Orders Ordered: ED Orders 03/27/25 12:50 Covid-19 + FLU A/B + RSV - PCR Stat Discontinued Medications Acetaminophen (Acetaminophen 325 Mg Tablet) 975 mg PO NOW ONE Stop: 03/27/25 13:20 Last Admin: 03/27/25 13:44 Dose: 975 mg Documented By: LIZA Albuterol (Albuterol 1.25 Mg/3 Ml Neb (Pediatric)) 1.25 mg INH NOW ONE Stop: 03/27/25 13:20 Albuterol (Albuterol 2.5 Mg/3 Ml Neb (Adult)) 2.5 mg INH NOW ONE Stop: 03/27/25 13:51 Last Admin: 03/27/25 13:51 Dose: 2.5 mg Documented By: GRICELDA Ondansetron HCl (Ondansetron 4 Mg Odt) 4 mg SL NOW ONE Stop: 03/27/25 13:20 Last Admin: 03/27/25 13:45 Dose: 4 mg Documented By: LIZA Vital Signs Vital signs: Vital Signs - 8 hr 03/27/25 12:58 03/27/25 13:47 03/27/25 13:52 Temperature 98.3 F Pulse Rate 82 98 H 89 Respiratory Rate 20 18 18 Blood Pressure 118/66 Pulse Oximetry 100 98 99 Oxygen Delivery Method Room Air Room Air Room Air 03/27/25 14:00 03/27/25 14:00 Temperature Pulse Rate 91 H Respiratory Rate Blood Pressure 112/62 Pulse Oximetry 98 Oxygen Delivery Method MDM - URI/Sore Throat <Alexandria Moore PA-C - Last Filed: 03/27/25 14:57> Medical Records Attestation: I reviewed the patient's medical records. Lab Data Labs: Lab Results 10/22/25 Range/Units 12:50 SARS-CoV-2 (PCR) Positive H (Negative) Influenza A (RT-PCR) Flu a negative (NEGATIVE) Influenza B (RT-PCR) Flu b negative (NEGATIVE) RSV (PCR) Negative (Negative) Urine Dip Bedside Urine Glucose Negative Bedside Urine Bilirubin - Negative Bedside Urine Ketone - Negative Urine Specific [place] 1.010 Bedside Urine Occult Blood - Negative Bedside Urine pH 6.5 Bedside Urine Protein - Negative Bedside Urine Urobilinogen - Negative Bedside Urine Nitrite - Negative Bedside Urine Leukocytes - Negative Esterase MDM Narrative Medical decision making narrative: 19-year-old female with a past medical history of possible asthma, currently 21 weeks, who follows with Dr. Myers/Ezequiel/Mane who presents to the emergency department for cough, shortness of breath, headache, sore throat, sinus congestion since yesterday. She has not received COVID or influenza vaccines this season. Differential diagnosis includes but is not limited to viral URI, bronchitis, sinusitis, laryngitis, COVID, flu, RSV, asthma exacerbation, reactive airway disease, etc. On exam the patient is in no acute distress, nontoxic-appearing, all vital signs within normal limits. No lower extremity edema. Lungs are clear to auscultation bilaterally. Reports experiencing some shortness of breath after becoming ?worked up? earlier after being frustrated that she can not get an appointment with her PCP, however at this time she is in no respiratory distress, not tachypneic, lungs are clear, not tachycardic, pulse ox is 100% on room air. She is also experiencing sinus congestion, sore throat. Physical exam overall reassuring, no acute otitis media, no tonsillitis, lungs are clear. She does report history of asthma and chest tightness that improves albuterol, we will trial albuterol, Tylenol, Zofran in the ED. We will also obtain POC UA. Viral swab positive for COVID. We will consult OBGYN in regards to best treatment of COVID in , Paxlovid. 1425: Discussed case with on-call OBGYN, Dr. Santamaria. Discussed patient history, current diagnosis of COVID. We discussed that she does not routinely prescribe Paxlovid for her COVID patients. I will have shared decision-making with the patient. heart tones 148. Point of care urinalysis negative. Patient feels much better after albuterol nebulizer. Discussed positive COVID results, after shared decision-making, patient is not interested in Paxlovid at this time. Discussed supportive care including rest, hydration, Tylenol, warm tea with honey, albuterol inhaler PRN. Advised patient to let her PCP/OBGYN known that she has COVID. Discussed strict ER return precautions. Patient verbalized understanding all information agreeable with the plan. She is stable for discharge home. <Shawn Peck MD - Last Filed: 03/27/25 18:57> Lab Data Labs: Lab Results 03/27/25 Range/Units 12:50 SARS-CoV-2 (PCR) Positive H (Negative) Influenza A (RT-PCR) Flu a negative (NEGATIVE) Influenza B (RT-PCR) Flu b negative (NEGATIVE) RSV (PCR) Negative (Negative) Urine Dip Bedside Urine Glucose Negative Bedside Urine Bilirubin - Negative Bedside Urine Ketone - Negative Urine Specific [place] 1.010 Bedside Urine Occult Blood - Negative Bedside Urine pH 6.5 Bedside Urine Protein - Negative Bedside Urine Urobilinogen - Negative Bedside Urine Nitrite - Negative Bedside Urine Leukocytes - Negative Esterase Discharge Plan Departure Patient Disposition: Home Clinical Impression: COVID-19 affecting in second trimester Instructions: DI for COVID-19 (Suspected or Confirmed ) Activity Restrictions/Additional Instructions: Dear Ms. Valencia, Thank you for coming to the emergency department. Today you were evaluated for upper respiratory infection symptoms. Unfortunately you did test positive for COVID. This is an upper respiratory viral infection. Please rest, increase hydration with water and electrolyte beverages, use acetaminophen/Tylenol if needed for fevers and pain, drink warm fluids with honey to help soothe her throat, and let your primary care doctor and OBGYN know. Please return to the emergency department if you develop chest pain, difficulty breathing, fevers lasting longer than 5 days, or any other concerns. Please follow up with your primary care doctor within the next 2-3 days for ER follow-up. (If you do not have a PCP you can call [phone]. ?to schedule an appointment with an [facility] Primary Care Provider) IF YOU DEVELOP ANY NEW OR WORSENING SYMPTOMS, RETURN TO THE ER! Please read the attached instructions, they highlight more specific treatments and interventions for you at home. Thank you for letting me participate in your care, Alexandria Moore PA-C Prescriptions: No Action vit-ferrous sulfat-FA 27 mg iron- 0.8 mg tablet PO ondansetron HCl 4 mg tablet 4 mg PO Q8H PRN (Reason: nausea and vomiting) Qty: 30 0RF Referrals: [facility]intin [Primary Care Provider, Family Practice] Stand Alone Forms: Patient Portal/API, Work Release Note ED Sign-out <Shawn Peck MD - Last Filed: 03/27/25 18:57> Cosign ED Attending Romana Attestation: I was immediately available in the department for consultation. ?This documentation has been reviewed and I agree with assessment and plan. Supervised by Shawn Peck MD
[2025-03-27] MEDS: ACETAMINOPHEN 325 MG TABLET 975 MG PO (13:44)
[2025-03-27] MEDS: ONDANSETRON 4 MG ODT SL (13:45)
[2025-03-27 13:47] VITALS: PULSE 98; RESP 18; O2SAT 98
[2025-03-27] MEDS: ALBUTEROL 2.5 MG/3 ML NEB (ADULT) INH (13:51)
[2025-03-27 13:52] VITALS: PULSE 89; RESP 18; O2SAT 99
[2025-03-27 14:00] VITALS: BP 112/62; PULSE 91; O2SAT 98
[2025-03-27 14:00] LABS: COVID-19 CEPHEID 4-PLEX PCR POSITIVE (Negative); Influenza A - CEPHEID Flu A NEGATIVE (NEGATIVE); Influenza B - CEPHEID Flu B NEGATIVE (NEGATIVE)
== END 2025-03-27 14:44 | disposition home or self-care (01) ==
PROVIDERS: Emergency Provider Physician Assistant
DX: O98.512 Other viral diseases complicating pregnancy, second trimester (principal); U07.1 COVID-19; Z3A.21 21 weeks gestation of pregnancy
CPT/HCPCS: 81003; 87637; 94640; 99283; 99284; J7613

== ENCOUNTER 2025-04-23 13:48 | Outpatient (CLI) | payer OTHER, SELFPAY | END 2025-04-23 14:35 | disposition home or self-care (01) | LOC: LABOR 15:06 → OB 04-24 08:10 | PROVIDERS: Referring Provider Obstetrics & Gynecology; Visit Provider Obstetrics & Gynecology | DX: O36.8120 Decreased fetal movements, second trimester, not applicable or unspecified (principal); Z3A.25 25 weeks gestation of pregnancy | CPT/HCPCS: 59025; G0378; G0379 ==

== ENCOUNTER → 2025-05-10 09:57 | Outpatient (CLI) | payer OTHER, SELFPAY ==
[2025-05-10 13:50] LABS: Hematocrit 36.9 % (36-46); Hemoglobin 12.4 g/dL (12.0-16.0)
[2025-05-10 14:27] LABS: GTT (PREG) 1 Hour PP 50gm Dose 110 mg/dL (76-139)
== END ==
PROVIDERS: Referring Provider Obstetrics & Gynecology; Visit Provider Obstetrics & Gynecology
DX: Z13.1 Encounter for screening for diabetes mellitus (principal); Z13.0 Encounter for screening for diseases of the blood and blood-forming organs and certain disorders involving the immune mechanism
CPT/HCPCS: 36415; 82950; 85014; 85018

== ENCOUNTER → 2025-05-17 11:00 | Outpatient (CLI) | payer OTHER, SELFPAY | PROVIDERS: Referring Provider Obstetrics & Gynecology; Visit Provider Obstetrics & Gynecology | DX: R30.0 Dysuria (principal) | CPT/HCPCS: 87086 ==

== ENCOUNTER → 2025-05-24 16:22 | Outpatient (CLI) | payer OTHER, SELFPAY ==
[2025-05-24 18:39] LABS: Alanine Aminotransferase 17 IU/L (<35); Albumin 3.7 g/dL (3.5-5.0); Albumin Globulin Ratio 1.4 (1.0-2.8); Alkaline Phosphatase 111 U/L (38-126); Blood Urea Nitrogen 6 mg/dL (7-17); Calcium 9.4 mg/dL (8.4-10.2); Carbon Dioxide 20 mmol/L (22-32); Chloride 104 mmol/L (98-107); Estimated Glomerular Filt Rate > 60 mL/min (>60); Globulin 2.6 g/dL (1.7-4.1); Glucose 73 mg/dL (70-99); HEMOLYSIS < 15 (0-50); Potassium 4.3 mmol/L (3.4-5.1); Sodium 133 mmol/L (137-145); Total Protein 6.3 g/dL (6.3-8.2)
== END ==
PROVIDERS: Referring Provider Obstetrics & Gynecology; Visit Provider Obstetrics & Gynecology
DX: L29.9 Pruritus, unspecified (principal)
CPT/HCPCS: 36415; 80053; 82239